=== PATIENT | female | born 1950 | race African-American/Black ===

== ENCOUNTER 2022-04-26 17:41 | Observation (INO) | payer MEDICARE ==
[~2022-04-26 17:41] MED LIST: Iopamidol 370 76% 100 ML VIAL ONE
[2022-04-26 18:15] LABS: INR-International Normal Ratio 1.1; Prothrombin Time 11.4 sec (9.5-12.1)
[2022-04-26 18:19] LABS: PTT 20.4 sec (22.0-33.0)
[2022-04-26 19:08] LABS: SARS-CoV-2 NAA Rapid Test DETECTED (NotDetected)
[2022-04-26] MEDS ORDERED: Calcium Carbonate 500 MG ChewTAB PO PRN (20:07)
[2022-04-26] MEDS ORDERED: Guaifenesin DM 100-10/5 ML UDCUP PO PRN (20:07)
[2022-04-26] MEDS ORDERED: Ondansetron PF 4 MG/2 ML Vial IVP PRN (20:07)
[2022-04-26] MEDS ORDERED: Senokot S 8.6-50 MG TAB PO PRN (20:07)
[2022-04-26 20:45] VITALS: BMI 36.8
[2022-04-26] MEDS: Benzonatate 100 MG CAP PO SCH (20:53)
[2022-04-26] MEDS: Acetaminophen 325 MG TAB PO PRN (20:55)
[2022-04-26] MEDS ORDERED: Lactated Ringer's 1,000 ML IV SCH (21:00)
[2022-04-27] MEDS: Acetaminophen 325 MG TAB PO PRN ×2 (02:41→08:22)
[2022-04-27 06:47] LABS: Anion Gap 11 mmol/L (10-20); BUN (Urea Nitrogen) 24 mg/dL (9.8-20.1); CK (CPK) 40 U/L (29-168); Calc. Creatinine Clearance 72 mL/min (70-130); Calcium 9.2 mg/dL (7.8-10.44); Carbon Dioxide 26 mmol/L (23-31); Chloride 104 mmol/L (98-107); Estimated GFR 52; Glucose 123 mg/dL (83-110); Potassium 3.8 mmol/L (3.5-5.1); Sodium 137 mmol/L (136-145)
[2022-04-27 06:49] LABS: Bilirubin Neg (Negative); Blood, Urine Negative (Negative); Clarity Clear (Clear); Glucose, Urine (Dipstick) Normal (Negative); Ketone, Urine Negative (Negative); Leukocyte Negative (Negative); Nitrite Negative (Negative); Protein, Urine (Dipstick) 15 mg/dl (Neg-Trace); Urobilinogen Normal mg/dL (Less than 2)
[2022-04-27 06:56] LABS: Bacteria/HPF Rare-Few HPF (None Seen); RBC/HPF 0-3 HPF (0-3); Squamous Epithelial 0-3 HPF (0-3); WBC/HPF 0-3 HPF (0-3); Yeast-Budding 2+ HPF (None Seen)
[2022-04-27 06:57] LABS: Yeast-Hyphae 1+ HPF (None Seen)
[2022-04-27] MEDS: Benzonatate 100 MG CAP PO SCH (08:23)
[2022-04-27] MEDS ORDERED: Enoxaparin Sodium 40 MG/0.4 ML SYRINGE SC SCH (09:00)
[2022-04-27 13:36] VITALS: BP 131/62; TEMP 97.2
== END 2022-04-27 15:49 | disposition home or self-care (01) ==
LOC: CSHERS 17:41 → CSHTELE 19:53
PROVIDERS: ADMIT Student in an Organized Health Care Education/Training Program; ATTEND Family Medicine
DX: U07.1 COVID-19 (principal); R55 Syncope and collapse; N17.9 Acute kidney failure, unspecified; I10 Essential (primary) hypertension; I44.7 Left bundle-branch block, unspecified; N28.9 Disorder of kidney and ureter, unspecified; R79.1 Abnormal coagulation profile; E66.01 Morbid (severe) obesity due to excess calories; Z68.36 Body mass index [BMI] 36.0-36.9, adult; Z79.899 Other long term (current) drug therapy; M19.90 Unspecified osteoarthritis, unspecified site
CPT/HCPCS: 71275; 80048; 81001; 82550; 83735; 84443; 84484 ×2; 85379; 85610; 85730; 93005; 93306; 96374; 99285; G0378 ×2; U0002; 36415; J7120; Q9967